=== PATIENT | female | born 1995 | race Caucasian/White ===

== ENCOUNTER 2017-01-09 20:20 | Emergency (ER) | payer OTHER ==
--- NOTE | ~2017-01-09 | CT2 ---
[facility] A Service of [facility] & [facility] RADIOLOGY TEXT RESULTS PATIENT: JASON ONEAL LOCATION: SED : 95 UNIT #: [id number] AGE: [address]: Cyrus Torres MD SEX: F ORDER DR: [id number] [place] [id number] E MR#: [id number] Acc #: [id number] NAME: JASON ONEAL. : 1995 SEX: F STUDY DATE/TIME: 01/09/2017 21:48 UNIT: SED ROOM: STUDY DESCRIPTION: CT Abd and Pelv W Cont Attending Physician: Cyrus Torres M.D. Referring Physician: Cyrus Torres M.D. Ordering Physician: Cyrus Torres M.D. Primary Care Physician: Antonina Bajwa M.D. MEDICAL IMAGING REPORT This report is preliminary unless electronic signature is present. EXAM CT abdomen and pelvis with oral and IV contrast 01/09/2017 PROCEDURE Axial contrast-enhanced CT abdomen and pelvis with multiplanar reformats. This CT exam was performed with one or more of the following radiation dose reduction techniques: Automatic exposure control, adjustment of mA and/or kV according to patient size, and iterative reconstruction. HISTORY Fever and lower abdominal pain for 1 day. FINDINGS The lung bases are normal. ABDOMEN: The liver and gallbladder, and spleen and pancreas are normal. The kidneys and adrenal glands are normal, and the aorta is normal in caliber. PELVIS: There is wall thickening throughout the descending colon. It is incompletely distended, which may overestimate the appearance, but nonetheless the finding suggests descending colonic colitis. The appendix is normal. There is no pelvic inflammatory change or mass. IMPRESSION 1. The left colon is abnormal. It is nondistended, but the wall appears thickened. Due to nondistension, the appearance of wall thickening may be exaggerated, but the finding is suspicious. There is no wall thickening in the distal colon and rectum. There is no inflammatory change in the adjacent fat. 2. The appendix is normal and there is no bowel obstruction or renal or biliary obstruction, or other acute finding. Further evaluation for STS. [facility] A Service of [facility] & [facility] RADIOLOGY TEXT RESULTS PATIENT: JASON ONEAL LOCATION: SED : 95 UNIT #: [id number] AGE: [address]: Cyrus Torres MD SEX: F ORDER DR: nonobstructive colitis is recommended. Obviously, it could be due to any number of causes and there are no distinctive features to suggest Crohn or UC, or other colitis at this time. Dictated by... Jeff Casey M.D. THIS IS AN ELECTRONICALLY VERIFIED REPORT Jeff Casey M.D. at 01/11/2017 9:44 AM TEV/psc TD: 01/10/2017 02:17 JOB #: [id number] MEDICAL IMAGING REPORT Page 1 of 1
[2017-01-09 20:13] LABS: URINE SOURCE CLEAN CATCH
[2017-01-09 20:17] LABS: MICRO INDICATED? YES; URINE APPEARANCE HAZY; URINE BILIRUBIN NEG (NEG); URINE BLOOD 3+ (NEG); URINE COLOR YELLOW; URINE GLUCOSE NEG (NORM); URINE KETONE TRACE (NEG); URINE LEUKOCYTE ESTERASE TRACE (NEG); URINE NITRATE NEG (NEG); URINE PROTEIN 1+ (NEG); URINE SPECIFIC GRAVITY >=1.030 (1.003-1.035)
[2017-01-09 20:19] LABS: CULTURE INDICATED? YES; URINE BACTERIA 1+ (NEG); URINE MUCUS PRESENT; URINE RBC 25-50 /[HPF] (0-2); URINE SQUAMOUS EPITHELIAL CELL OCCAS /[HPF]; URINE TRANSITIONAL EPI CELLS FEW /[HPF]
[~2017-01-09 20:20] MED LIST: BACLOFEN10 MG PO; BENADRYL PO; KEFLEX PO; MEDROL PO; NAPROSYN500 MG PO; NO MEDICATIONS; TYLENOL #3 PO; VEETIDS 500500 M1 PO
[2017-01-09 20:30] LABS: BASOPHIL% 0.3 % (0-2.5); HEMOGLOBIN 15.3 gm/dL (12.0-16.0); LYMPHOCYTE# 0.6 X10e3 (1.0-3.5); LYMPHOCYTE% 4.8 % (17.0-45.0); MEAN CORPUSCULAR HEMOGLOBIN 29.2 PG (28-34); MEAN CORPUSCULAR HGB CONC 34.8 g/dL (30-36); MEAN PLATELET VOLUME 6.9 FL (6.5-11.5); MONOCYTE# 0.7 X10e3 (0-1.0); MONOCYTE% 5.2 % (3.0-12.0); NEUTROPHIL# 11.9 X10e3 (1.5-7.1); NEUTROPHIL% 89.7 % (40-75); PLATELET COUNT 203 X10e3 (140-420); RED BLOOD COUNT 5.23 X10e (3.90-5.30); RED CELL DISTRIBUTION WIDTH 12.7 % (11.0-15.5); WHITE BLOOD COUNT 13.3 X10e3 (4.0-10.5)
[2017-01-09 20:32] LABS: DIFF IND NO
[2017-01-09 20:46] LABS: ALBUMIN SERUM 4.3 g/dL (3.5-5.0); BILIRUBIN, DIRECT 0.1 mg/dL (0.0-0.2); BILIRUBIN,INDIRECT 0.7 mg/dL (0.0-0.9); BILIRUBIN,TOTAL 0.8 mg/dL (0.2-2.0); BUN/CREATININE RATIO 11.11; CALCIUM SERUM 9.4 mg/dL (8.4-10.2); CREATININE SERUM 0.9 mg/dL (0.6-1.4); GLOM FILT RATE Estimated 91.5 mL/min (>60); POTASSIUM 3.6 mmol/L (3.5-5.1); PROTEIN TOTAL SERUM 7.8 g/dL (6.0-8.3)
== END 2017-01-09 23:14 | disposition home or self-care (01) ==
LOC: SED 20:20
PROVIDERS: Emergency Medicine
DX: N39.0 Urinary tract infection, site not specified (principal); K52.9 Noninfective gastroenteritis and colitis, unspecified
CPT/HCPCS: 36415; 74177; 80048; 80076; 81003; 83690; 84703; 85025; 87040; 87086; 96361; 96374; 96375; 99284; J2270; J2405; Q9967